=== PATIENT | male | born 1945 | race Caucasian/White ===

== ENCOUNTER → 2020-06-10 | Day surgery (SDC) | payer OTHER ==
[~2020-06-10] VITALS: Ht 165.1 cm; Wt 77.1 kg
[~2020-06-10] MED LIST: ACCU-CHEK COMFORT CURVE STRIP VI ONE; ATEN-60 PO; BUPIVACAINE 0.25% INJ 50ML VIAL ONE; CHOL1TAB28 PO; CHRO200T3 PO; COEN100C15 PO; DexAMETHasone SOD PHOS 10MG/1ML VIAL INJ ONE; GINS1CAP PO; GLYCOPYRROLATE 0.2 MG/ML 1ML VIAL ONE; HYDROmorphone HCL 2 MG/ML VL IV PRN; INSUINJ2 SC; KETOROLAC TROMETH 30 MG/ML 1ML VIAL IV ONE; LIDOCAINE 2% (LOCAL ANESTH.) PF 5ml SDV ONE; LISI-646 PO; MEPERIDINE HCL (50 MG/ML) 1 ML VIAL ONE; MIDAZOLAM HCL 1MG/1ML-2 ML VIAL ONE; OMEG120017 PO; ONDANSETRON HCL 4 MG/2 ML VIAL IV PRN; ONDANSETRON HCL 4 MG/2 ML VIAL ONE; PROPOFOL 10 MG/ML 20 ML IV ONE; TETRACAINE 1% INJ 2 ML VIAL IJ ONE; ZOLP5TAB5 PO; ceFAZolin 1GM/50ML 50 ML IV ONE; fentaNYL CITRATE 100 MCG/2 ML VL ONE
[2020-06-10 09:20] VITALS: BP 120/70
== END | disposition home or self-care (01) ==
LOC: SUR 07:02
PROVIDERS: ATTEND Orthopaedic Surgery Adult Reconstructive Orthopaedic Surgery
DX: G56.01 Carpal tunnel syndrome, right upper limb (principal); I10 Essential (primary) hypertension; E11.9 Type 2 diabetes mellitus without complications; Z20.828 Contact with and (suspected) exposure to other viral communicable diseases; Z98.890 Other specified postprocedural states; Z79.899 Other long term (current) drug therapy
CPT/HCPCS: 64718; 82962; J0690; J1100; J1885; J2001; J2175; J2250; J2405; J2704; J3010; J3490; U0003